=== PATIENT | male | born 1990 | race Caucasian/White ===

== ENCOUNTER 2016-11-08 15:40 | Emergency (ER) | payer OTHER ==
[2016-11-08 15:47] VITALS: BP 114/71; PULSE 80; RESP 16; TEMP 98.4; O2SAT 96
[2016-11-08] MEDS ORDERED: OXYCODONE/APAP 5/325 TAB ONE (16:03)
[2016-11-08] MEDS ORDERED: OXYCODONE/APAP 5/325 TAB PO ONE (16:05)
--- NOTE | 2016-11-08 16:09 | EDPHY ---
HPI/HX/ROS/PE/MDM Narrative: CHIEF COMPLAINT: Right ankle pain HPI: The patient is a 26 y/o male arriving with his friend complaining of right ankle pain secondary to an injury yesterday. He states he was jumping on a trampoline and describes an inversion injury. He denies other injuries, weakness , or paresthesias. He now has pain primarily to the lateral side of his right ankle that radiates slightly up the lateral side of his leg. He has been able to bear weight, but with pain. He has a history of previous sprains in this ankle. He is otherwise healthy. REVIEW OF SYSTEMS: Aside from elements discussed in the HPI, a comprehensive 10-point review of systems was reviewed and is negative. PMH: Previous right ankle sprain, otherwise denies SOCIAL HISTORY: Friend at bedside PHYSICAL EXAM: General:Patient is alert, in no acute distress. Respiratory:No respiratory distress. Cardiovascular: Normal cap refill and pulse in right foot Skin: Normal color. No rash. Warm and dry. Extremities: Right ankle: swelling and tenderness to lateral malleolus, mild tenderness to medial malleolus, no tenderness over 5th metatarsal. Other extremities: normal appearance, full range of motion. Neuro: Oriented x3. Normal motor function. Normal sensory function. ED Course: Right ankle x-ray obtained. Images show nothing acute. I viewed the images myself on the PACS system. Patient will be discharged with crutches, script for Percocet, and standard sprain care instructions. He's been referred to ortho for follow up if needed. Return precautions given. He is comfortable with this plan. - Data Points Imaging Results: Imaging Impressions Ankle X-Ray 11/08/16 15:50 Impression: 1. No acute osseous findings. 2. Mild contour irregularity of the lateral talar dome, possibly degenerative, with no definite osteochondral defect. If symptoms persist and clinical suspicion warrants, consider MRI. Medications Given: Discontinued Medications Oxycodone/Acetaminophen (Percocet 5/325) 2 tab PO EDNOW ONE Stop: 11/08/16 16:06 Last Admin: 11/08/16 16:06 Dose: 2 tab General Time Seen by Provider: 11/08/16 15:48 Initial Vital Signs: Initial Vital Signs Temperature (C) 36.9 C 11/08/16 15:43 Heart Rate 80 11/08/16 15:43 Respiratory Rate 16 11/08/16 15:43 Blood Pressure 114/71 11/08/16 15:43 O2 Sat (%) 96 11/08/16 15:43 O2 Delivery Mode Room Air Allergies/Adverse Reactions: No Known Allergies Allergy (Unverified 11/08/16 15:43) Home Medications: Medication Instructions Recorded oxyCODONE/APAP 5/325 [Percocet 1 - 2 tab PO Q4H PRN #10 tab 11/08/16 5/325 (*)] Departure - Departure Disposition: Home, Routine, Self-Care Clinical Impression: Sprain of right ankle Qualifiers: Encounter type: initial encounter Involved ligament of ankle: other ligament Qualified Code(s): S93.491A - Sprain of other ligament of right ankle, initial encounter Condition: Good Instructions: Ankle Sprain (ED) Additional Instructions: 1. Apply ice to sore areas. Expect to feel most sore within 24-48hours of the injury. 2. Use 600mg ibuprofen every 8 hours as needed for pain and swelling over the next few days. 3. Take Percocet as prescribed when needed for pain not controlled by ibuprofen. 4. Keep foot elevated when possible. 5. Encourage you to bear weight as tolerated. 6. Follow up an orthopedist if needed for continued symptoms over the next 1-2 weeks. Referrals: Nando Pond MD [Primary Care Provider] - As per Instructions Stefan Beaulieu MD [Medical Doctor] - As per Instructions Prescriptions: oxyCODONE/APAP 5/325 [Percocet 5/325 (*)] 1 - 2 tab PO Q4H PRN #10 tab PRN Reason: Pain, Severe Report Scribed for: Terry Riggins Report Scribed by: Rossana Ribeiro Date of Report: 11/08/16 Time of Report: 16:04
== END 2016-11-08 16:26 | disposition home or self-care (01) ==
DX: S93.491A Sprain of other ligament of right ankle, initial encounter (principal); X58.XXXA Exposure to other specified factors, initial encounter; Y93.44 Activity, trampolining